=== PATIENT | male | born 1945 | race Two or more races ===

== ENCOUNTER 2017-11-03 08:47 | Outpatient (CLI) | payer OTHER | END 2017-11-03 08:51 | disposition home or self-care (01) | LOC: RAD 08:47 | DX: M12.811 Other specific arthropathies, not elsewhere classified, right shoulder (principal); M12.821 Other specific arthropathies, not elsewhere classified, right elbow; M19.90 Unspecified osteoarthritis, unspecified site ==

== ENCOUNTER 2018-03-01 11:15 | Outpatient (CLI) | payer OTHER | END 2018-03-01 11:18 | disposition home or self-care (01) | LOC: RAD 11:15 | DX: R10.84 Generalized abdominal pain (principal); M46.47 Discitis, unspecified, lumbosacral region ==